=== PATIENT | male | born 1970 | race Caucasian/White ===

== ENCOUNTER 2020-10-15 08:51 | Emergency (ER) | payer MEDICARE, MEDICAID, SELFPAY ==
--- NOTE | ~2020-10-15 | CT_ITS ---
EXAMINATION: CT HEAD WITHOUT CONTRAST CLINICAL INFORMATION: Substance abuse. Altered mental status. COMPARISON: None TECHNIQUE: Contiguous axial imaging was performed from the skull base to vertex without intravenous administration of contrast. This CT examination was performed using dose optimization techniques as appropriate, variously including the following: *Automated exposure control *Adjustment of mA and/or kV according to patient size (this includes techniques or standardized protocols for targeted exams where dose is matched to indication/reason for exam; i.e. extremities or head) *Use of iterative reconstruction technique DLP: 1088 mGy-cm FINDINGS: No intra-axial or extra-axial hemorrhage. No acute territorial infarct. Ventricles and sulci appear normal. Preservation of orourke-white matter differentiation. No mass, mass effect, or midline shift. No fracture. Polypoid mucosal thickening of the left maxillary sinus. Partial opacification of the ethmoid air cells. The mastoid air cells and visualized paranasal sinuses are otherwise clear. CT/CT head/brain wo con IMPRESSION: No acute intracranial pathology.
[2020-10-15 09:21] VITALS: BP 131/71; PULSE 59; RESP 16; TEMP 36.8; O2SAT 96; BMI 45.3
--- NOTE | 2020-10-15 09:25 | PC.NURSE ---
pt calm on arrival, immediately fell asleep and has been sleeping soundly. Wakes to verbal stimuli, mumbles, speech not clear. He then returms to sleep. EMS report pt was found with a crack pipe, also had been using other unknown substances including possibly suboxone. Pt states he was partying and then fell asleep.
[2020-10-15 09:29] VITALS: BP 131/71; PULSE 59; RESP 16; TEMP 36.8; O2SAT 96
[2020-10-15 12:31] VITALS: BP 117/91; PULSE 59; RESP 14; O2SAT 95
--- NOTE | 2020-10-15 12:32 | PC.NURSE ---
pt wakes to verbal stimuli, gets agitated, raises fist but unable to answer questions. Provider aware
[2020-10-15 13:47] VITALS: BP 121/83; PULSE 61; RESP 14; O2SAT 95
--- NOTE | 2020-10-15 13:51 | ED.ALCOHOL ---
HPI - Alcohol General Chief Complaint: ETOH/Substance Use Stated Complaint: ams, drug use Time Seen by Provider: 10/15/20 09:26 Source: patient and EMS Mode of arrival: EMS History of Present Illness HPI narrative: 50-year-old male with a past medical history of substance abuse brought in by ambulance and PD for arrived ache behavior/suspected substance abuse, patient altered/combative on scene with multiple paraphernalia/illicit substances found on person. Per EMS neighbors called 911 secondary to noise. Patient reported he had been partying all night, otherwise not forthcoming with information. Did admit to using Suboxone/crack. Denied injury/fall. Sleeping/lethargic/under the influence on exam Related Data Allergies Allergy/AdvReac Type Severity Reaction Status Date / Time No Known Allergies Allergy Unverified 10/15/20 09:33 Review of Systems Review of Systems: History unobtainable/limited secondary to patient's acute AMS/substance abuse Yes all other systems are reviewed and are negative PMFSH Past Medical History Attestation statement: The following information was validated with the patient. Medical History (Updated 10/15/20 @ 15:58 by RON Santillan) Substance abuse Social History Social History Alcohol intake: unknown Smoking Status: Unknown if ever smoked Use of substances other than those prescribed or required for medical reasons: Yes Substance Use Type: Crack/Cocaine, Other and Unknown Substance Use Type Other:: suboxone Substance Use Frequency: Chronic Longstanding Last Used Substance: Just Prior to Admission Advance Directives: No Physical Exam Vital Signs: Vital Signs: Last Vital Signs Temp 98.2 F 10/15/20 09:29 Pulse 56 10/15/20 15:50 Resp 16 10/15/20 15:50 BP 117/64 10/15/20 15:50 Pulse Ox 94 10/15/20 15:50 Body Mass Index 45.3 Const: Other: Appears under the influence General: patient obtunded Orientation/consciousness: patient obtunded HENMT: Head: Yes normal to inspection and Yes atraumatic Ears: hearing grossly normal bilaterally General nose exam: Normal external nose present Face and sinus: Yes normal facial exam Eyes: General: appearance normal, both eyes and all related structures Pupils: Equal, round and reactive pupils present EOM: EOMs intact bilaterally Neck: Neck: Yes normal visual inspection and Yes no meningeal signs Resp: Effort & Inspection: normal respiratory effort Cardio: Rate: regular rate GI: Inspection: Yes normal to inspection Palpation (GI): Soft to palpation, nontender, no guarding and not rigid Skin: Rashes: no rashes Wounds: no wounds Neuro: Other: Atraumatic, arousable to painful stimuli General: tone normal, moves all extremities, no meningeal signs and patient obtunded Cranial nerves: Yes Equal, round and reactive pupils present Extrem: General: Yes normal to inspection Course Course Course Narrative: CT head/brain wo con IMPRESSION: No acute intracranial pathology. -1557--patient is still sleeping comfortably, no respiratory distress -1700--ED care transfer to [facility] pending clinical sobriety and re-evaluation, anticipated DC home MDM - Alcohol MDM Narrative Medical decision making narrative: 50-year-old male with a past medical history of substance abuse brought in by ambulance and PD for arrived ache behavior/suspected substance abuse, patient altered/combative on scene with multiple paraphernalia/illicit substances found on person. On exam VSS, NAD, appears under the influence, atraumatic, obtain ended but arousable to painful stimuli. Suspected substance abuse. Plan: Observe and reassess for clinical sobriety Medical Records Attestation: I reviewed the patient's medical records. Lab Data Attestation: I reviewed the patient's lab results. Discharge Plan Discharge Clinical Impression: Substance abuse Instructions: Polysubstance Abuse (ED) Additional Instructions: Do not do drugs or drink alcohol it can kill you follow-up with your doctor Referrals: Physician,Unknown [Primary Care Provider] - 2 days
[2020-10-15 15:50] VITALS: BP 117/64; PULSE 56; RESP 16; O2SAT 94
--- NOTE | 2020-10-15 15:51 | PC.NURSE ---
pt wakes to verbal stimuli, states I'm ok and then amador to sleep. Pt repositioned.
--- NOTE | 2020-10-15 17:22 | PC.NURSE ---
pt continues to sleep soundly, wakes to loud verbal stimuli and looks around but returns to sleep without conversing. respirations even and unlabored.
[2020-10-15 18:29] VITALS: BP 106/71; PULSE 60; RESP 14; O2SAT 96
--- NOTE | 2020-10-15 18:47 | PC.NURSE ---
pt sleeping, woke for discharge. He is angry, asking for a ride home. Pt then states he has leg cramps and cannot walk. Pt then walked to bathroom and has been using phone to call for a ride. 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
== END 2020-10-15 19:08 | disposition home or self-care (01) ==
PROVIDERS: Emergency Provider Emergency Medicine
DX: F19.10 Other psychoactive substance abuse, uncomplicated (principal); R53.83 Other fatigue; F11.20 Opioid dependence, uncomplicated
CPT/HCPCS: 70450; 99284; 99285

== ENCOUNTER 2024-07-30 09:20 | Outpatient (AMB) | payer OTHER, SELFPAY ==
--- NOTE | 2024-07-30 09:50 | A.OFFPC_ITS ---
Vital Signs 07/30/24 10:03 Height 6 ft 0.17 in Weight 318 lb 8 oz BMI 43.0 BP 112/80 Blood Pressure Location Rt brachial Position Sitting Pulse 76 Pulse Source Pulse Oximeter Pulse Oximetry (%) 96 Oxygen Delivery Method Room Air Intake Visit Reasons: Est Care Intake Note: New patient visit. Having stress test in [facility] Consultant Required: No Allergies No Known Allergies Allergy (Verified 07/30/24 09:55) Tobacco use date assessed: 07/30/24 Dental Screening Dental Screen Date: 07/30/24 Did you have a dental visit in the last 12 months?: No Did you have a dental problem in the last 6 months where you did not have access to dental care?: No Was dental information given to patient?: Patient declined HPI HPI Comments History of Present Illness Details 54 year old male with a past medical his tory of chronic back pain-DDD, hypertension, depression, ADHD, presenting to reestablish care MSK: Following with Dr Santos-MARIBEL of cervical, lumbar and thoracic spine. Has had injections and is being scheduled for an injection soon. Continue on pregabalin 300mg twice daily -Seeing [facility] for left knee pain. Waiting for gel injection. BH: Follows with [email or web address] for suboxone and [facility] in [place]. On abilify, adderall, prazosin, suboxone, celexa CV: On lipitor. Saw GI in 2022 to discuss colonoscopy ROS CONSTITUTIONAL: Denies weight loss, fever and chills. HEENT: Denies changes in vision and hearing. RESPIRATORY: Denies SOB and cough. CV: Denies palpitations and CP GI: Denies abdominal pain, nausea, vomiting and diarrhea. : Denies dysuria and urinary frequency. MSK: Denies new myalgia and joint pain. SKIN: Denies rash and pruritus. NEUROLOGICAL: Denies headache PSYCHIATRIC: Denies recent changes in mood. PHYSICAL EXAM: GENERAL: Alert and oriented x 3. NAD EYES: EOMI. Anicteric. HENT: Moist mucous membranes. No scleral icterus. No cervical lymphadenopathy. LUNGS: Clear to auscultation bilaterally. CARDIOVASCULAR: Regular rate and rhythm. No murmur. No JVD. ABDOMEN: Soft, non-tender +bs EXTREMITIES: No edema. Non-tender. SKIN: No rashes or lesions. Warm. NEUROLOGIC: No focal neurological deficits. CN II-XII grossly intact PSYCHIATRIC: Cooperative. Appropriate mood and affect [facility] Medical History Substance abuse Surgical History H/O shoulder surgery Family History Mother Alcoholism Depression Maternal Grandmother Alcoholism Maternal Grandfather Alcoholism Other FH: mental illness Substance abuse Social History Housing: Apartment (2 family house) Alcohol intake: former Comment: quit 2017 Patient Tobacco Use Status: Current everyday Tobacco user Tobacco use type: Cigarette Cigarette Packs Per Day: 0 Cigarettes Per Day: 20 Years Smoked: 36 e-Cigarette/Vaping Use: Never Used Second Hand Smoke Exposure: No Substance Use Type: Crack/Cocaine, Former Substance User, Other and Unknown service: No Current occupational status: employed and unemployed Cognitive needs: No Hearing needs: No Vision needs: Yes (reading glasses) Questionnaire PHQ-9 Over the last 2 weeks, how often have you been bothered by any of the following problems? 1. Little interest or pleasure in doing things: several days 2. Feeling down, depressed, or hopeless: several days 3. Trouble falling or staying asleep, or sleeping too much: not at all 4. Feeling tired or having little energy: not at all 5. Poor appetite or overeating: not at all 6. Feeling bad about yourself - or that you are a failure or have let yourself or your family down: not at all 7. Trouble concentrating on things, such as reading the newspaper or watching television: not at all 8. Moving or speaking so slowly that other people could have noticed. Or the opposite - being so fidgety or restless that you have been moving around a lot more than usual: several days 9. Thoughts that you would be better off or of hurting yourself in some way: not at all Total score: 3 Depression Screening Interpretation: Positive Depression Screening Done: Yes 55120 - PHQ-9 Billing: Yes Source: Developed by Drs. Dannie Almaguer, Dari Bolanos, Simone Cochran and colleagues, with an educational sulaiman from [employer]. Thrive Questionnaire Date Thrive assessed: 07/27/24 I am a: Patient What is your living situation today?: I have a steady place to live Within the past 12 months, did the food you bought not last and you didn't have the money to get more?: Sometimes True Within the past 12 months, did you worry whether your food would run out before you got money to buy more?: Sometimes True Do you have trouble paying for medicines?: I choose not to answer this question Do you have trouble getting transportation to medical appointments?: I choose not to answer this question Do you have trouble paying your heating and electricity bill?: I choose not to answer this question Do you have trouble taking care of your child, family member or friend?: I choose not to answer this question Do you have trouble with day-to-day activities such as bathing, preparing meals, shopping, managing finances, etc.?: I choose not to answer this question Are you currently unemployed and looking for a job?: I choose not to answer this question Are you interested in more education?: I choose not to answer this question Please select the resources that you would like help with: None Currently or been in a relationship where the following occur: I choose not to answer THRIVE Score: 2 AUDIT C Alcohol Use Questionnaire (AUDIT-C) 1. How often do you have a drink containing alcohol?: Never 3. How often do you have six or more drinks on one occasion?: Never Total Score: 0 OBED-7 AMB Questionnaire OBED-7 Date OBED - 7 assessed: 07/30/24 Feeling nervous, anxious, or on edge: 1 = Several days Not being able to stop or control worryin = Several days Worrying too much about different things: 1 = Several days Trouble relaxin = Not at all Being so restless that it is hard to sit still: 0 = Not at all Becoming easily annoyed or irritable: 0 = Not at all Feeling afraid as if something awful might happen: 0 = Not at all Total OBED-7 score (0-4 normal; 5-9 mild; 10-14 moderate; 15-21 severe): 3 Source: Developed by Dari Hutchins Kurt Kroenke and colleagues, with an educational sulaiman from [employer]. OBED-7 Assessment Billing OBED-7 Assessment Tool: OBED-7 Assessment 23406 Physical exam (Primary Care) Vital Signs: Last Vital Signs Pulse 76 07/30/24 10:03 BP 112/80 07/30/24 10:03 Pulse Ox 96 07/30/24 10:03 Oxygen Delivery Method Room Air 07/30/24 10:03 BMI result Body Mass Index 43.0 Tobacco/Smoking Status: Tobacco use Status Tobacco use date assessed 07/30/24 07/30/24 10:11 Patient Tobacco Use Status Current everyday Tobacco 07/30/24 10:11 Tobacco use type Cigarette 07/30/24 10:11 e-Cigarette/Vaping Use Never Used 07/30/24 10:11 PHQ-9: PHQ-9 Score PHQ-9: Total score 3 08/09/24 07:09 Depression Screening Interpretation: Positive Thrive Assessment: Date of Thrive Assessment Date Thrive assessed 07/27/24 07/30/24 09:52 Currently or been in a relationship where the following occur: I choose not to answer Coding Level of Care Code Est Pt Level 4 (64771) Diagnoses Primary hypertension I10 Hypertension type: primary hypertension H/O degenerative disc disease Z87.39 Recurrent major depressive disorder, in partial remission F33.41 Active/Remission status: in partial remission Depression Type: major depressive disorder Major depression recurrence: recurrent Anxiety F41.9 Additional Codes OBED-7 Assessment Billing - OBED-7 Assessment Tool: OBED-7 Assessment 81570 ([id number]) PHQ-9 - 22911 - PHQ-9 Billing: Yes ([id number]) Assessment & Plan Assessment & Plan (1) Hypertension: Code(s): I10 - Essential (primary) hypertension Category: Medical Qualifiers: Hypertension type: primary hypertension Qualified Code(s): I10 - Essential (primary) hypertension Plan: controlled on current medication. Efforts toward weight loss. GLP ordered (2) H/O degenerative disc disease: Code(s): Z87.39 - Personal history of other diseases of the musculoskeletal system and connective tissue Category: Medical Plan: continue follow up physiatry (3) Depression: Code(s): F32.A - Depression, unspecified Category: Medical Qualifiers: Active/Remission status: in partial remission Depression Type: major depressive disorder Major depression recurrence: recurrent Qualified Code(s): F33.41 - Major depressive disorder, recurrent, in partial remission Plan: stable on current medicaitons (4) Anxiety: Code(s): F41.9 - Anxiety disorder, unspecified Category: Medical Plan: stable on current medications Orders: Referrals Cologuard Test Z12.11 - Encounter for screening for malignant neoplasm of colon, Z12.12 - Encounter for screening for malignant neoplasm of rectum Medications: New Zepbound (tirzepatide (weight loss)) for 4 weeks 2.5 mg (0.5 mL) subcut QWEEK 2 mL 0RF NS E66.9 - Obesity, unspecified, I10 - Essential (primary) hypertension, Z87.39 - Personal history of other diseases of the musculoskeletal system and connective tissue
[2024-07-30 10:03] VITALS: BP 112/80; PULSE 76; O2SAT 96; BMI 43.0
== END 2024-07-30 10:28 | disposition home or self-care (01) ==
PROVIDERS: PCP Internal Medicine; Visit Provider Internal Medicine
DX: I10 Essential (primary) hypertension (principal); Z87.39 Personal history of other diseases of the musculoskeletal system and connective tissue; F33.41 Major depressive disorder, recurrent, in partial remission; F41.9 Anxiety disorder, unspecified

== ENCOUNTER → 2024-07-30 09:20 | Outpatient (BNVA) | payer OTHER, SELFPAY | PROVIDERS: PCP Internal Medicine; Visit Provider Internal Medicine | DX: I10 Essential (primary) hypertension (principal); F33.41 Major depressive disorder, recurrent, in partial remission; F41.9 Anxiety disorder, unspecified; Z87.39 Personal history of other diseases of the musculoskeletal system and connective tissue; Z79.899 Other long term (current) drug therapy | CPT/HCPCS: 96127; 99212 ==

== ENCOUNTER 2024-08-31 16:21 | Outpatient (AMB) | payer OTHER, SELFPAY ==
--- NOTE | 2024-08-31 15:35 | A.OFFPC_ITS ---
Intake Visit Reasons: phone weight Allergies No Known Allergies Allergy (Verified 07/30/24 09:55) Medication List - Last Reconciled 09/01/24 by Meena Chen MD aripiprazole 10 mg PO BEDTIME atorvastatin 40 mg PO DAILY chlorthalidone 25 mg PO DAILY 90 days cholecalciferol (vitamin D3) 50 mcg PO DAILY dextroamphetamine-amphetamine 20 mg 20 mg PO BID 60 days ibuprofen 800 mg PO 3XD PRN pregabalin 300 mg PO BID venlafaxine ER 75 mg PO DAILY Wegovy (semaglutide (weight loss)) 0.25 mg (0.5 mL) subcut QWEEK NS Zepbound (tirzepatide (weight loss)) 2.5 mg (0.5 mL) subcut QWEEK NS Tobacco use date assessed: 07/30/24 Dental Screening Dental Screen Date: 07/30/24 HPI HPI Comments History of Present Illness Details 54 year old male with a past medical his tory of chronic back pain-DDD, hypertension, depression, ADHD, presenting for follow up Seen one month ago at which time he was initiated on zepbound-insurance wouldnt cover but would cover wegovy which was ordered. Says he never got notice from pharmacy so has not stated the medication. MSK: Following with Dr Santos-DDD of cervical, lumbar and thoracic spine. Has had injections and is being scheduled for an injection soon. Continue on pregabalin 300mg twice daily -Seeing [facility] for left knee pain. Has got ten 2/3 gel injection. BH: Follows with [facility] for suboxone and [facility] in [place]. On abilify, adderall CV: On lipitor. Saw GI in 2022 to discuss colonoscopy ROS CONSTITUTIONAL: Denies weight loss, fever and chills. HEENT: Denies changes in vision and hearing. RESPIRATORY: Denies SOB and cough. CV: Denies palpitations and CP GI: Denies abdominal pain, nausea, vomiting and diarrhea. : Denies dysuria and urinary frequency. MSK: Denies new myalgia and joint pain. SKIN: Denies rash and pruritus. NEUROLOGICAL: Denies headache PSYCHIATRIC: Denies recent changes in mood. PHYSICAL EXAM: Telehealth [facility] Medical History Substance abuse Surgical History H/O shoulder surgery Family History Mother Alcoholism Depression Maternal Grandmother Alcoholism Maternal Grandfather Alcoholism Other FH: mental illness Substance abuse Social History Housing: Apartment (2 family house) Alcohol intake: former Comment: quit 2017 Patient Tobacco Use Status: Current everyday Tobacco user Tobacco use type: Cigarette Cigarette Packs Per Day: 0 Cigarettes Per Day: 20 Years Smoked: 36 Packs Per Year: 0 Packs per year/per ci.00 e-Cigarette/Vaping Use: Never Used Second Hand Smoke Exposure: No Substance Use Type: Crack/Cocaine, Former Substance User, Other and Unknown service: No Current occupational status: employed and unemployed Cognitive needs: No Hearing needs: No Vision needs: Yes (reading glasses) Questionnaire Thrive Questionnaire Date Thrive assessed: 07/27/24 I am a: Patient What is your living situation today?: I have a steady place to live Within the past 12 months, did the food you bought not last and you didn't have the money to get more?: Sometimes True Within the past 12 months, did you worry whether your food would run out before you got money to buy more?: Sometimes True Do you have trouble paying for medicines?: I choose not to answer this question Do you have trouble getting transportation to medical appointments?: I choose not to answer this question Do you have trouble paying your heating and electricity bill?: I choose not to answer this question Do you have trouble taking care of your child, family member or friend?: I choose not to answer this question Do you have trouble with day-to-day activities such as bathing, preparing meals, shopping, managing finances, etc.?: I choose not to answer this question Are you currently unemployed and looking for a job?: I choose not to answer this question Are you interested in more education?: I choose not to answer this question Please select the resources that you would like help with: None Currently or been in a relationship where the following occur: I choose not to answer THRIVE Score: 2 OBED-7 AMB Questionnaire OBED-7 Date OBED - 7 assessed: 07/30/24 Source: Developed by Drs. Dannie Almaguer, Dari Bolanos, Simone Cochran and colleagues, with an educational sulaiman from [employer]. Physical exam (Primary Care) Tobacco/Smoking Status: Tobacco use Status Tobacco use date assessed 07/30/24 08/31/24 15:35 Patient Tobacco Use Status Current everyday Tobacco 08/31/24 15:35 Tobacco use type Cigarette 08/31/24 15:35 e-Cigarette/Vaping Use Never Used 08/31/24 15:35 Thrive Assessment: Date of Thrive Assessment Date Thrive assessed 07/27/24 08/31/24 15:35 Currently or been in a relationship where the following occur: I choose not to answer Telehealth Telehealth Telehealth Platform: [facility] Location of provider rendering services: practice address Location of patient: address on file Patient Identification confirmed using: Name, : Yes Telehealth method: voice only Patient verbally consented to treatment: Yes Patient verbally consented to billing insurance company: Yes Patient informed of any privacy concerns related to visit: Yes Minutes spent on Phone/Video with Pt.: 25 Coding Level of Care Code Tele Est Pt Level 4 (51150) Diagnoses Class 3 severe obesity with serious comorbidity and body mass index (BMI) of 40.0 to 44.9 in adult, unspecified obesity type E66.813; E66.01; Z68.41 Body mass index: BMI 40.0-44.9 Obesity classification: adult class 3 (BMI >= 40) Obesity type: unspecified obesity type Serious obesity comorbidity presence: with serious comorbidity Primary hypertension I10 Hypertension type: primary hypertension Assessment & Plan Assessment & Plan (1) Obesity: Code(s): E66.9 - Obesity, unspecified Category: Medical Qualifiers: Body mass index: BMI 40.0-44.9 Obesity classification: adult class 3 (BMI >= 40) Obesity type: unspecified obesity type Serious obesity comorbidity presence: with serious comorbidity Qualified Code(s): E66.813 - Obesity, class 3; E66.01 - Morbid (severe) obesity due to excess calories; Z68.41 - Body mass index [BMI] 40.0-44.9, adult Plan: wegocynthia resent. (2) Hypertension: Code(s): I10 - Essential (primary) hypertension Category: Medical Qualifiers: Hypertension type: primary hypertension Qualified Code(s): I10 - Essential (primary) hypertension Plan: controlled on medications. goals towards signficant weight loss. salt reduction Medications: New aripiprazole 10 mg PO BEDTIME 90 tabs 3RF cholecalciferol (vitamin D3) 50 mcg PO DAILY 90 caps 3RF Changed From ibuprofen PO 3XD To ibuprofen 800 mg PO 3XD PRN 270 tabs 3RF fever or pain From atorvastatin PO DAILY To atorvastatin 40 mg PO DAILY 90 tabs 3RF From venlafaxine ER PO To venlafaxine ER 75 mg PO DAILY 90 caps 3RF From pregabalin PO BID To pregabalin 300 mg PO BID 180 caps 3RF From dextroamphetamine-amphetamine 20 mg PO BID 0RF F98.8 - Other specified behavioral and emotional disorders with onset usually occurring in childhood and adolescence To dextroamphetamine-amphetamine 20 mg 20 mg PO BID 60 days 120 tabs 0RF F98.8 - Other specified behavioral and emotional disorders with onset usually occurring in childhood and adolescence From chlorthalidone PO DAILY To chlorthalidone 25 mg PO DAILY 90 days 90 tabs 3RF Refilled venlafaxine ER 75 mg PO DAILY 90 caps 3RF ibuprofen 800 mg PO 3XD PRN 270 tabs 3RF fever or pain chlorthalidone 25 mg PO DAILY 90 tabs 3RF 90 days Wegovy (semaglutide (weight loss)) administer weeks 1 through 4 of therapy 0.25 mg (0.5 mL) subcut QWEEK 2 mL 1RF NS E66.9 - Obesity, unspecified, I10 - Essential (primary) hypertension Wegovy (semaglutide (weight loss)) administer weeks 1 through 4 of therapy 0.25 mg (0.5 mL) subcut QWEEK 2 mL 1RF NS E66.9 - Obesity, unspecified, I10 - Essential (primary) hypertension pregabalin 300 mg PO BID 180 caps 3RF dextroamphetamine-amphetamine 20 mg 20 mg PO BID 120 tabs 0RF 60 days F98.8 - Other specified behavioral and emotional disorders with onset usually occurring in childhood and adolescence cholecalciferol (vitamin D3) 50 mcg PO DAILY 90 caps 3RF atorvastatin 40 mg PO DAILY 90 tabs 3RF aripiprazole 10 mg PO BEDTIME 90 tabs 3RF
--- OUTSIDE RECORDS SUMMARY | 2024-08-31 19:45 | XMS_ITS | Clinical Summary ---
Author Organization [employer] [facility] Address [address] [place] [address] Care Team Providers Care Director Of Campus Recreation Name Role Phone Meena Chen MD Primary Care Provider [phone] Surgical History Surgery Date Site/Laterality Comments SHOULDER SURGERY 2001 Right PROCEDURE: HISTORICAL SHOULDER SURGERY Medical History Medical History Date Comments Cervicalgia 03/24/2017 DX:Cervicalgia High risk medication use 12/12/2016 DX:High risk medication use Hyperlipidemia with target L DL less than 130 12/23/2013 DX:Hyperlipidemia with targe t LDL less than 130; COMMENT: IMO update Lumbosacral spondylosis with radiculopathy 05/30/2015 DX:Lumbosacral spondylosis w ith radiculopathy; COMMENT: Sees PSSP, MRI: DDD, sppondylisthesis, foraminal narrowing , L3-4 nerve root crowding Morbid obesity with BMI of 4 5.0-49.9, adult (CMS/HCC) 03/24/2017 DX:Morbid obesity with BMI o f 45.0-49.9, adult ([facility]) Sacroiliitis (CMS/HCC) 03/24/2017 DX:Sacroi liitis ([facility]) Thoracic spondylosis without myelopathy DX:Thoracic spondylosis without myelopathy; COMMENT: PSSP Family History Medical History Relation Name Comments Other: fire Father Stroke Maternal Grandmother Heart attack Mother Relation Name Status Comments Father Maternal Grandmother Mother Social History Tobacco Use Types Packs/Day Years Used Date Smoking Tobacco: Every Day Cigarettes Last attempted to quit: 06/18/2012 Smokeless Tobacco: Never Alcohol Use Standard Drinks/Week Comments No 0 (1 standard drink = 0.6 oz pur e alcohol) Sex and Gender Information Value Date Recorded Sex Assigned at Not on file Legal Sex Male 7:48 PM EST Gender Identity Not on file Sexual Orientation Not on file Obstetrics History Plan of Treatment Health Maintenance Due Date Last Done Comments Hepatitis B Vaccines (1 of 3 - 19+ 3-dose series) 1989 Pneumococcal Vaccine: 50+ Years (1 of 2 - PCV) 1989 Pneumococcal Vaccine: Pediatrics (0 to 5 Years) and At-Risk Patients (6 to 64 Years) (1 of 2 - PCV) 1989 Zoster Vaccines (1 of 2) 2020 Cholesterol Screening (Lipid Panel) 06/08/2022 Colorectal Cancer Screening: Colonoscopy 06/08/2022 Depression Screening 06/08/2022 HIV Screening 06/08/2022 Hepatitis C Screening 06/08/2022 Social Influencers of Health Screening 06/08/2022 Hypertension/CHF/CAD Annual BMP Blood Test 06/22/2022 DTaP,Tdap,and Td Vaccines (2 - Td or Tdap) 12/04/2022 12/04/2012 COVID-19 Vaccine (4 - 2023-2 5 season) 2024 06/28/2021, 11/26/2020, 11/05/2020 Influenza Vaccine (#1) 2024 05/10/2020 HIB Vaccines Aged Out No longer eligi ble based on patient's age to complete this topic HPV Vaccines Aged Out No longer eligi ble based on patient's age to complete this topic Hepatitis A Vaccines Aged Out No long er eligible based on patient's age to complete this topic IPV Vaccines Aged Out No longer eligi ble based on patient's age to complete this topic MMR Vaccines Aged Out No longer eligi ble based on patient's age to complete this topic Meningococcal ACWY Vaccine Aged Out N o longer eligible based on patient's age to complete this topic Meningococcal B Vacine Aged Out No lo nger eligible based on patient's age to complete this topic RSV Immunization Patients Under 20 months Aged Out No longer eligible b ased on patient's age to complete this topic Varicella Vaccines Aged Out No longer eligible based on patient's age to complete this topic Care Teams Director Of Campus Recreation Relationship Specialty Start Date End Date Meena Chen MD PCP - General Internal Medicine 04/28/15
== END 2024-08-31 17:05 | disposition home or self-care (01) ==
LOC: HO.HMCFM 16:21
PROVIDERS: PCP Internal Medicine; Visit Provider Internal Medicine
DX: I10 Essential (primary) hypertension (principal); E66.01 Morbid (severe) obesity due to excess calories; Z68.41 Body mass index [BMI] 40.0-44.9, adult

== ENCOUNTER → 2024-08-31 16:21 | Outpatient (BNVA) | payer OTHER, SELFPAY | PROVIDERS: PCP Internal Medicine; Visit Provider Internal Medicine | DX: E66.9 Obesity, unspecified (principal); I10 Essential (primary) hypertension; F98.8 Other specified behavioral and emotional disorders with onset usually occurring in childhood and adolescence ==

== ENCOUNTER 2025-01-11 15:23 | Outpatient (AMB) | payer OTHER, SELFPAY ==
--- OUTSIDE RECORDS SUMMARY | 2025-01-11 08:50 | XMS_ITS | Encounter Summary ---
Author Organization [facility] Address [address] [place] [address] Care Team Providers Care Sleeve Baster Name Role Phone Meena Chen MD Primary Care Provider [phone] Reason for Referral * Pain Management (Routine) - Authorized Specialty Diagnoses / Procedures Referred By Contac t Referred To Contact Pain Medicine Diagnoses Radiculopathy, lumbar region Procedures Injection epidural lumbar transforaminal right Romulo Santos DO [address] [facility] [address] [place] [address] Phone: tel: fax: Referral ID Status Reason Start Date Expiration Date V isits Requested Visits Authorized [id number] Authorized 12/14/2024 12/14/2025 1 1 Reason for Visit * Pain Management (Routine) - Authorized Specialty Diagnoses / Procedures Referred By Nickac t Referred To Contact Pain Medicine Diagnoses Radiculopathy, lumbar region Procedures Injection epidural lumbar transforaminal right Romulo Santos DO [address] [facility] [address] [place] [address] Phone: tel: fax: Referral ID Status Reason Start Date Expiration Date V isits Requested Visits Authorized [id number] Authorized 12/14/2024 12/14/2025 1 1 Encounter Details Date Type Department Care Team (Latest Contact Info) Description 01/11/2025 8:50 AM EDT Hospital Encounter [facility] [address] [place] [id number] Romulo Santos DO [address] [employer] [address] [place] [address] Dai Shanks CRNA [address] [place] [address] Brooks Cardona MD [address] [place] [address] Radiculopathy, lumbar region Social History Tobacco Use Types Packs/Day Years [...] on file Sexual Orientation Not on file documented as of this encounter Last Filed Vital Signs Vital Sign Reading Time Taken Comments Blood Pressure 117/70 01/11/2025 11:42 AM EDT Pulse 65 01/11/2025 11:42 AM EDT Temperature 36.4 C (97.6 F) 01/11/2025 11:21 AM EDT Respiratory Rate 18 01/11/2025 11:42 AM EDT Oxygen Saturation 97% 01/11/2025 11:42 AM EDT Inhaled Oxygen Concentration - - Weight 145 kg (320 lb) 01/11/2025 9:05 AM EDT Height 180.3 cm (5' 11 ) 01/11/2025 9:05 AM EDT Body Mass Index 44.63 01/11/2025 9:05 AM EDT documented in this encounter H&P Notes * Romulo Santos DO - 01/11/2025 10:00 AM EDT Please refer to our office notes for complete details of history of present illness and physical examination. They were reviewed. No changes are reported. documented in this encounter Procedure Notes * Keila Bryant RN - 01/11/2025 10:00 AM EDT Dc instructions reviewed w/pt * Romulo Santos DO - 01/11/2025 10:00 AM EDT Procedure performed: Right L1 TFESI Pre-Op diagnosis: Lumbar radiculitis Postop diagnosis: Same Physician: Romulo Santos DO Anesthesia: MAC Procedure in detail: After informed consent was obtained patient was brought in the procedure room and placed in the prone position on the procedure table. Skin over lumbar sacral area was prepped and draped in usual sterile manner. Right L1 pedicle was visualized utilizing fluoroscopy. 5 inch 22-gauge spinal needle was introduced percutaneously and advanced toward the pedicle. Needle placement was verified utilizingAP and lateral fluoroscopic images. Total volume of 3 cc of Isovue contrast solution was utilized to establish appropriate needle positioning. Excellent flow through the neural foramen and epidural spread was visualized without evidence of vascular uptake. Total volume of 6 cc containing 3 cc of 1% lidocaine, 40 mg of triamcinolone and normal saline solution were injected after negative aspiration for blood and cerebrospinal fluid. Patient tolerated procedure very well without complications. Patient was transported to recovery room and after observation discharged home in stable condition accompanied by family. Postprocedure instructions were provided. Radiation exposure was documented in the chart. documented in this encounter Plan of Treatment Scheduled Orders Name Type Priority Associated Diagnoses Orde r Schedule Injection epidural lumbar transforaminal right Procedures Routine Radiculopathy, lumbar region Once for 1 Occurrences starting 01/11/2025 until 01/11/2025 documented as of this encounter Visit Diagnoses Diagnosis Radiculopathy, lumbar region Thoracic or lumbosacral neuritis or radiculitis, unspecified documented in this encounter Administered Medications Inactive Administered Medications - up to 3 most recent administrations Medication Order MAR Action Action Date Dose Rate Site iopamidoL (ISOVUE-300) 300 mg iodine /mL (61 %) solution As needed, Starting on Fri01/11/25 at 1111, Intraprocedure Given 01/11/2025 11:11 AM EDT 3 mL lidocaine (XYLOCAINE) 1 % injection As needed, Starting on Fri01/11/25 at 1111, Intraprocedure Given 01/11/2025 11:11 AM EDT 5 mL triamcinolone acetonide (KENALOG-40) 40 mg/mL injection As needed, Starting on Fri01/11/25 at 1111, Intraprocedure Given 01/11/2025 11:11 AM EDT 40 mg documented in this encounter Orders Discharge Count Last Ordered Date First Orde red Date DISCHARGE PATIENT 1 01/11/2025 documented in this encounter Care Teams Sleeve Baster Relationship Specialty Start Date End Date Meena Chen MD [address] [place] [address] PCP - General Internal Medicine 04/28/15 documented as of this encounter
--- NOTE | 2025-01-11 15:33 | A.OFFPC_ITS ---
Vital Signs 01/11/25 15:40 Height 6 ft 0.17 in Weight 331 lb 2 oz BMI 44.7 BP 138/67 Blood Pressure Location Lt brachial Position Sitting Pulse 73 Pulse Source Pulse Oximeter Temp 97.9 F Temp Source Oral Pulse Oximetry (%) 96 Oxygen Delivery Method Room Air Intake Visit Reasons: f/u Intake Note: Follow up Entry Level Software Engineer Required: No Allergies No Known Allergies Allergy (Verified 01/11/25 15:36) Tobacco use date assessed: 01/11/25 Dental Screening Dental Screen Date: 07/30/24 HPI HPI Comments History of Present Illness Details 54 year old male with a past medical his tory of chronic back pain-DDD, hypertension, depression, ADHD, opioid misuse on suboxone presenting for follow up Obesity: tries to limit caloric intake. unable to exercise due to OA, DDD, chronic pain. zepbound denied. Insurance previously approved wegovy but was unable to obtain MSK: Following with Dr Santos-MARIBEL of cervical, lumbar and thoracic spine. Has had injections and is being scheduled for an injection soon. Continue on pregabalin 300mg twice daily -Seeing [facility] for left knee pain. Has got ten 2/3 gel injection. BH: Follows with [facility] for suboxone and [facility] [place]. On abilify, adderall, venlafaxine 75 daily. CV: On lipitor, chlorthalidone 25mg daily. Notes increased LE edema. Lasix previously worked better for him. Has intermittent chest pain. Was previously supposed to have nuclear stress but lost to follow up Saw GI in 2022 to discuss colonoscopy. cologuard ordered ROS see HPI PHYSICAL EXAM: GENERAL: Alert and oriented x 3. NAD EYES: EOMI. Anicteric. HENT: Moist mucous membranes. No scleral icterus. No cervical lymphadenopathy. LUNGS: Clear to auscultation bilaterally. CARDIOVASCULAR: Regular rate and rhythm. No murmur. No JVD. ABDOMEN: Soft, non-tender +bs EXTREMITIES: No edema. Non-tender. SKIN: No rashes or lesions. Warm. NEUROLOGIC: No focal neurological deficits. CN II-XII grossly intact PSYCHIATRIC: Cooperative. Appropriate mood and affect [facility] Medical History Substance abuse Surgical History History of epidural steroid injection into cervical spine H/O shoulder surgery Family History Mother Alcoholism Depression Maternal Grandmother Alcoholism Maternal Grandfather Alcoholism Other FH: mental illness Substance abuse Social History Housing: Apartment (2 family house) Alcohol intake: former Comment: quit 2017 Patient Tobacco Use Status: Current everyday Tobacco user Tobacco use type: Cigarette Cigarette Packs Per Day: 0 Cigarettes Per Day: 20 Years Smoked: 36 e-Cigarette/Vaping Use: Never Used Second Hand Smoke Exposure: No Substance Use Type: Crack/Cocaine, Former Substance User, Other and Unknown service: No Current occupational status: employed and unemployed Cognitive needs: No Hearing needs: No Vision needs: Yes (reading glasses) Questionnaire Thrive Questionnaire Date Thrive assessed: 07/27/24 I am a: Patient What is your living situation today?: I have a steady place to live Within the past 12 months, did the food you bought not last and you didn't have the money to get more?: Sometimes True Within the past 12 months, did you worry whether your food would run out before you got money to buy more?: Sometimes True Do you have trouble paying for medicines?: I choose not to answer this question Do you have trouble getting transportation to medical appointments?: I choose not to answer this question Do you have trouble paying your heating and electricity bill?: I choose not to answer this question Do you have trouble taking care of your child, family member or friend?: I choose not to answer this question Do you have trouble with day-to-day activities such as bathing, preparing meals, shopping, managing finances, etc.?: I choose not to answer this question Are you currently unemployed and looking for a job?: I choose not to answer this question Are you interested in more education?: I choose not to answer this question Please select the resources that you would like help with: None Currently or been in a relationship where the following occur: I choose not to answer THRIVE Score: 2 OBED-7 AMB Questionnaire OBED-7 Date BOED - 7 assessed: 07/30/24 Source: Developed by José Miguel Hutchinset B.W. Luis Miguel, Simone Cochran and colleagues, with an educational sulaiman from [employer]. Physical exam (Primary Care) Vital Signs: Last Vital Signs Temp 97.9 F 01/11/25 15:40 Pulse 73 01/11/25 15:40 BP 138/67 01/11/25 15:40 Pulse Ox 96 01/11/25 15:40 Oxygen Delivery Method Room Air 01/11/25 15:40 BMI result Body Mass Index 44.7 Tobacco/Smoking Status: Tobacco use Status Tobacco use date assessed 01/11/25 01/11/25 15:44 Patient Tobacco Use Status Current everyday Tobacco 01/11/25 15:35 Tobacco use type Cigarette 01/11/25 15:35 e-Cigarette/Vaping Use Never Used 01/11/25 15:35 Thrive Assessment: Date of Thrive Assessment Date Thrive assessed 07/27/24 01/11/25 15:35 Currently or been in a relationship where the following occur: I choose not to answer Coding Level of Care Code Est Pt Level 4 (74791) Complex EM visit Add On G2211 Diagnoses Primary hypertension I10 Hypertension type: primary hypertension H/O degenerative disc disease Z87.39 Primary osteoarthritis involving multiple joints M15.0 Osteoarthritis location: multiple joints Osteoarthritis type: primary Chest pain, unspecified type R07.9 Chest pain type: unspecified Assessment & Plan Assessment & Plan (1) Hypertension: Code(s): I10 - Essential (primary) hypertension Category: Medical Qualifiers: Hypertension type: primary hypertension Qualified Code(s): I10 - Essential (primary) hypertension (2) H/O degenerative disc disease: Code(s): Z87.39 - Personal history of other diseases of the musculoskeletal system and connective tissue Category: Medical (3) Osteoarthritis: Code(s): M19.90 - Unspecified osteoarthritis, unspecified site Category: Medical Qualifiers: Osteoarthritis location: multiple joints Osteoarthritis type: primary Qualified Code(s): M15.0 - Primary generalized (osteo)arthritis (4) Chest pain: Code(s): R07.9 - Chest pain, unspecified Category: Medical Qualifiers: Chest pain type: unspecified Qualified Code(s): R07.9 - Chest pain, unspecified Plan 54 year old follow up Chronic pain-would be good journavx candidate. Might have to go off suboxone if approved. Add baclofen. continue physiatry follow up. Obesity-GLP ordered. multple comorbidities Chest pain-nuclear stress ordered Orders: Orders Complete Blood Count Auto Diff 01/11/25 E66.01 - Morbid (severe) obesity due to excess calories, E66.813 - Obesity, class 3, E78.5 - Hyperlipidemia, unspecified, F33.41 - Major depressive disorder, recurrent, in partial remission, F41.9 - Anxiety disorder, unspecified, I10 - Essential (primary) hypertension, Z13.0 - Encounter for screening for diseases of the blood and blood-forming organs and certain disorders involving the immune mechanism, Z68.41 - Body mass index [BMI] 40.0-44.9, adult Lipid Panel 01/11/25 E66.01 - Morbid (severe) obesity due to excess calories, E66.813 - Obesity, class 3, E78.5 - Hyperlipidemia, unspecified, F33.41 - Major depressive disorder, recurrent, in partial remission, F41.9 - Anxiety disorder, unspecified, I10 - Essential (primary) hypertension, Z13.0 - Encounter for screening for diseases of the blood and blood-forming organs and certain disorders involving the immune mechanism, Z68.41 - Body mass index [BMI] 40.0- 44.9, adult NM cardiolite stress test 01/11/25 R94.31 - Abnormal electrocardiogram [ECG] [EKG] Comprehensive Met. Panel 01/11/25 E66.01 - Morbid (severe) obesity due to excess calories, E66.813 - Obesity, class 3, E78.5 - Hyperlipidemia, unspecified, F33.41 - Major depressive disorder, recurrent, in partial remission, F41.9 - Anxiety disorder, unspecified, I10 - Essential (primary) hypertension, Z13.0 - Encounter for screening for diseases of the blood and blood-forming organs and certain disorders involving the immune mechanism, Z68.41 - Body mass index [BMI] 40.0-44.9, adult Hemoglobin A1c 01/11/25 E66.01 - Morbid (severe) obesity due to excess ca lories, E66.813 - Obesity, class 3, E78.5 - Hyperlipidemia, unspecified, F33.41 - Major depressive disorder, recurrent, in partial remission, F41.9 - Anxiety disorder, unspecified, I10 - Essential (primary) hypertension, Z13.0 - Encounter for screening for diseases of the blood and blood-forming organs and certain disorders involving the immune mechanism, Z68.41 - Body mass index [BMI] 40.0- 44.9, adult TSH reflex Free T4 01/11/25 E66.01 - Morbid (severe) obesity due to excess calories, E66.813 - Obesity, class 3, E78.5 - Hyperlipidemia, unspecified, F33.41 - Major depressive disorder, recurrent, in partial remission, F41.9 - Anxiety disorder, unspecified, I10 - Essential (primary) hypertension, Z13.0 - Encounter for screening for diseases of the blood and blood-forming organs and certain disorders involving the immune mechanism, Z68.41 - Body mass index [BMI] 40.0-44.9, adult CA stress test 01/11/25 R94.31 - Abnormal electrocardiogram [ECG] [EKG] Medications: New suzetrigine (Journavx) 50 mg PO BID 180 tabs 3RF baclofen 20 mg PO TID 270 tabs 3RF furosemide 40 mg PO DAILY 90 tabs 3RF Discontinued chlorthalidone Discontinued Reason: Doctor's Order 25 mg PO DAILY 90 days 90 tabs 3RF
[2025-01-11 15:40] VITALS: BP 138/67; PULSE 73; TEMP 36.6; O2SAT 96; BMI 44.7
== END 2025-01-11 16:41 | disposition home or self-care (01) ==
LOC: HO.HMCFM 15:24
PROVIDERS: PCP Internal Medicine; Visit Provider Internal Medicine
DX: I10 Essential (primary) hypertension (principal); Z87.39 Personal history of other diseases of the musculoskeletal system and connective tissue; M15.0 Primary generalized (osteo)arthritis; R07.9 Chest pain, unspecified

== ENCOUNTER → 2025-01-11 15:23 | Outpatient (BNVA) | payer OTHER, SELFPAY | PROVIDERS: PCP Internal Medicine; Visit Provider Internal Medicine | DX: I10 Essential (primary) hypertension (principal); M15.0 Primary generalized (osteo)arthritis; R07.9 Chest pain, unspecified; F90.9 Attention-deficit hyperactivity disorder, unspecified type; Z87.39 Personal history of other diseases of the musculoskeletal system and connective tissue; Z79.899 Other long term (current) drug therapy | CPT/HCPCS: 99212 ==

== ENCOUNTER 2025-03-30 13:51 | Outpatient (AMB) | payer OTHER, SELFPAY ==
--- NOTE | 2025-03-30 14:01 | AM.OFFWIN_ITS ---
Intake Intake Visit Reasons: left swollen leg Intake Note: Patient c/o left swollen leg Patient Tobacco Use Status: Current everyday Tobacco user Screener And Blender Operator Required: No Allergies No Known Allergies Allergy (Verified 03/30/25 14:02) Do you need a note to return to daycare/school/sports/work: No PFSH Medical History Substance abuse Surgical History History of epidural steroid injection into cervical spine H/O shoulder surgery Family History Mother Alcoholism Depression Maternal Grandmother Alcoholism Maternal Grandfather Alcoholism Other FH: mental illness Substance abuse Social History Housing: Apartment (2 family house) Alcohol intake: former Comment: quit 2017 Patient Tobacco Use Status: Current everyday Tobacco user Tobacco use type: Cigarette Cigarette Packs Per Day: 0 Cigarettes Per Day: 20 Years Smoked: 36 e-Cigarette/Vaping Use: Never Used Second Hand Smoke Exposure: No Substance Use Type: Crack/Cocaine, Former Substance User, Other and Unknown service: No Current occupational status: employed and unemployed Cognitive needs: No Hearing needs: No Vision needs: Yes (reading glasses) Coding
--- NOTE | 2025-03-30 14:04 | A.OFFPC_ITS ---
Vital Signs 3 03/30/25 14:06 Height 6 ft 0.17 in Weight 344 lb BMI 46.4 BP 122/70 Blood Pressure Location Lt brachial Position Sitting Respiration 12 Pulse 84 Pulse Source Pulse Oximeter Temp 97.6 F Temp Source Oral Pulse Oximetry (%) 98 Oxygen Delivery Method Room Air Intake Visit Reasons: left swollen leg Intake Note: Patient c/o left leg red and swollen it started yesterday. Group Fitness Instructor Required: No Allergies No Known Allergies Allergy (Verified 03/30/25 14:12) Medication List - Last Reconciled 03/30/25 by Pratima Leon, SHIFT MECHANIC- aripiprazole 10 mg PO BEDTIME atorvastatin 40 mg PO DAILY baclofen 20 mg PO TID cholecalciferol (vitamin D3) 50 mcg PO DAILY dextroamphetamine-amphetamine 20 mg 20 mg PO BID 60 days furosemide 40 mg PO DAILY ibuprofen 800 mg PO 3XD PRN pregabalin 300 mg PO BID suzetrigine (Journavx) 50 mg PO BID venlafaxine ER 75 mg PO DAILY Wegovy (semaglutide (weight loss)) 0.25 mg (0.5 mL) subcut QWEEK 4 weeks NS Zepbound (tirzepatide (weight loss)) 2.5 mg (0.5 mL) subcut QWEEK NS Tobacco use date assessed: 03/30/25 Dental Screening Dental Screen Date: 03/30/25 Did you have a dental visit in the last 12 months?: Yes Did you have a dental problem in the last 6 months where you did not have access to dental care?: No Was dental information given to patient?: Patient has dentist HPI HPI Comments 2 History of Present Illness0 Details 54 year old male with a past medical his tory of chronic back pain-DDD, hypertension, depression, ADHD, opioid misuse on suboxone Here today w/ c/o redness and swelling of left leg noticed yesterday has chronic leg swelling; this is not new. Taking lasix Has an open area near his R ankle Tdap 2012; will update today Declined flu shot Current smoker Denies fever, chills; reports normal sensation in the L foot Exam LLE Neurovasc intact, +1-2 edema, warm to touch. See picture below Plan Tdap today Augmentin w/ food for 7 days Smoking cessation RTO 04/04 for recheck. Total time spent caring for the patient today was 30 minutes. This includes time spent before the visit reviewing the chart, time spent during the visit, and time spent after the visit on documentation, reviewing laboratory results, diagnostic imaging, medications, performing a medically necessary evaluation, counseling on diagnoses, care coordination, ordering appropriate tests, ordering appropriate medications, review of tests performed by other providers, reporting test results with the patient, communication with other healthcare providers. [facility] Medical History Substance abuse Surgical History History of epidural steroid injection into cervical spine H/O shoulder surgery Family History Mother Alcoholism Depression Maternal Grandmother Alcoholism Maternal Grandfather Alcoholism Other FH: mental illness Substance abuse Social History Housing: Apartment (2 family house) Alcohol intake: former Comment: quit 2017 Patient Tobacco Use Status: Current everyday Tobacco user Tobacco use type: Cigarette Cigarette Packs Per Day: 0 Cigarettes Per Day: 20 Years Smoked: 36 e-Cigarette/Vaping Use: Never Used Second Hand Smoke Exposure: No Substance Use Type: Crack/Cocaine, Former Substance User, Other and Unknown service: No Current occupational status: employed and unemployed Cognitive needs: No Hearing needs: No Vision needs: Yes (reading glasses) Questionnaire Thrive Questionnaire Date Thrive assessed: 07/27/24 I am a: Patient What is your living situation today?: I have a steady place to live Within the past 12 months, did the food you bought not last and you didn't have the money to get more?: Sometimes True Within the past 12 months, did you worry whether your food would run out before you got money to buy more?: Sometimes True Do you have trouble paying for medicines?: I choose not to answer this question Do you have trouble getting transportation to medical appointments?: I choose not to answer this question Do you have trouble paying your heating and electricity bill?: I choose not to answer this question Do you have trouble taking care of your child, family member or friend?: I choose not to answer this question Do you have trouble with day-to-day activities such as bathing, preparing meals, shopping, managing finances, etc.?: I choose not to answer this question Are you currently unemployed and looking for a job?: I choose not to answer this question Are you interested in more education?: I choose not to answer this question Please select the resources that you would like help with: None Currently or been in a relationship where the following occur: I choose not to answer THRIVE Score: 2 AUDIT C Alcohol Use Questionnaire (AUDIT-C) 2. How many drinks containing alcohol do you have on a typical day when you are drinking?: 1 or 2 Total Score: 0 OBED-7 AMB Questionnaire OBED-7 Date OBED - 7 assessed: 07/30/24 Source: Developed by Drs. Dannie Almaguer, Dari Bolanos, Simone Cochran and colleagues, with an educational sulaiman from [employer]. Physical exam (Primary Care) Vital Signs: Last Vital Signs Temp 97.6 F 03/30/25 14:06 Pulse 84 03/30/25 14:06 Resp 12 03/30/25 14:06 BP 122/70 03/30/25 14:06 Pulse Ox 98 03/30/25 14:06 Oxygen Delivery Method Room Air 03/30/25 14:06 BMI result Body Mass Index 46.4 BMI Assessment/Plan discussion: High BMI High, discussed plan: lifestyle Tobacco/Smoking Status: Tobacco use Status Tobacco use date assessed 03/30/25 03/30/25 14:07 Patient Tobacco Use Status Current everyday Tobacco 03/30/25 14:04 Tobacco use type Cigarette 03/30/25 14:04 e-Cigarette/Vaping Use Never Used 03/30/25 14:04 Are you ready to quit: No Tobacco cessation counseling provided: Yes Items discussed: Nicotine replacement, QuitWorks and Other Relapse Prevention: discussed the importance of a supportive environment, discussed extending NRT, discussed negative mood or depression after quitting, weight gain after smoking is common and discussed dietary, exercise and/or lifestyle changes Number of minutes spent counselin CPT code: 11925 - 4-10 Minutes Thrive Assessment: Date of Thrive Assessment Date Thrive assessed 07/27/24 03/30/25 14:04 Currently or been in a relationship where the following occur: I choose not to answer Immunizations Boostrix Tdap 2.5 Lf unit-8 mcg-5 Lf/0.5 mL intramuscular syringe Performing Provider: MICHAEL Weber Performing Location: [facility] Administered by: Sophie Bergman MA on 03/30/25 14:27 2 Dose Route Admin Location Dispensed Lot Number Expiration Date NDC Machine Feed Operator 0.5 mL IM Right Deltoid 0.5 mL [id number] 05/11/27 73222-490-12 [employer] 2 Total Dispensed Waste 0.5 mL 0 % 2 VIS Given Date VIS Provided VIS Publication Date 03/30/25 Single Vaccine 21 Eligibility Eligibility Date Funding Source Not [facility] Eligible 03/30/25 Private Coding Level of Care Code Est Pt Level 4 (80327) Complex EM visit Add On G2211 Diagnoses Cellulitis of left lower extremity L03.116 Need for Tdap vaccination Z23 Influenza vaccination declined Z28.21 Tobacco dependence F17.200 Obesity, morbid, BMI 40.0-49.9 E66.01 Additional Codes Vital Signs *Quality* - CPT code: 53235 - 4-10 Minutes ([id number]) Assessment & Plan Assessment & Plan (1) Cellulitis of left lower extremity: Code(s): L03.116 - Cellulitis of left lower limb Category: Medical (2) Need for Tdap vaccination: Code(s): Z23 - Encounter for immunization Category: Medical (3) Influenza vaccination declined: Onset Date: ~03/30/25 Code(s): Z28.21 - Immunization not carried out because of patient refusal Category: Medical (4) Tobacco dependence: Comment: Smoking Cessation How to Quit There are a lot of ways to quit smoking and many resources to help you. Family members, friends, and co-workers may be supportive or encouraging, but to be successful the desire and commitment to quit must be your own. Most people who have been able to successfully quit smoking made at least one unsuccessful attempt in the past. Try not to view past attempts to quit as failures, but rather as learning experiences. Stopping smoking or using smokeless tobacco is difficult, but anyone can do it. Know the symptoms to expect when you stop. Common symptoms include: ? An intense craving for nicotine ? Anxiety, tension, restlessness, frustration, or impatience ? Difficulty concentrating ? Drowsiness or trouble sleeping, as well as bad dreams and nightmares ? Drowsiness and trouble sleeping ? Headaches ? Increased appetite and weight gain ? Irritability or depression How severe your symptoms are depends on how long you smoked and how many cigarettes you smoked each day. Feel ready to quit? ? First and foremost, set a quit date and quit completely on that day. Before your quit date, you may begin reducing your cigarette use. But remember, there is no safe level of cigarette smoking. ? List the reasons why you want to quit. Include both short- and long-term benefits. ? Identify the times you are most likely to smoke. For example, do you tend to smoke when feeling stressed or down? When out at night with friends? While drinking coffee or alcohol? When bored? While driving? Right after a meal or sex? During a work break? While watching TV or playing cards? When you are with other smokers? ? Let all of your friends, family, and co-workers know of your plan to stop smoking and your quit date. Just being aware that they know what you're going through can be helpful, especially when you are grumpy. ? Get rid of all your cigarettes just before the quit date, and clean out anything that smells like smoke, such as clothes and furniture. Make a plan about what you will do instead of smoking at those times when you are most likely to smoke. ? Be as specific as possible. For example, drink tea instead of coffee -- tea may not trigger the desire for a cigarette. Or, take a walk when you feel stressed. ? Remove ashtrays and cigarettes from the car. Place pretzels or hard candies there instead. Pretend-smoke with a straw. ? Find activities that focus your hands and mind but are not taxing or fattening. Computer games, solitaire, knitting, sewing, and crossword puzzles may help. ? If you normally smoke after eating, find other ways to end a meal. Play a tape or CD, eat a piece of fruit, get up and make a phone call, or take a walk (a good distraction that also felix calories). Make other changes in your lifestyle. ? Change your daily schedule and habits. Eat at different times or eat several small meals instead of three large ones. Sit in a different chair or even a different room. ? Satisfy your oral habits by eating celery or other low-calorie snack, chewing sugarless gum, or sucking on a cinnamon stick. ? Go to public places and restaurants where smoking is prohibited or restricted. ? Eat regular meals and don't eat too much candy or sweet things. ? Get more exercise. Take walks or ride a bike. Exercise helps relieve the urge to smoke. Set short-term quitting goals and reward yourself when you meet them. ? Every day, put the money you normally spend on cigarettes in a jar. Then buy something pleasurable after a period of time. ? Try not to think about all the days ahead you will need to avoid smoking. Take it one day at a time. ? Even one puff or one cigarette will make your desire for more cigarettes even stronger. However, it is normal to make mistakes. So even if you have one cigarette, you don't need to take the next one. Other tips to help you quit smoking and stick to it: ? Enroll in a smoking cessation program (hospitals, health departments, community centers, and work sites often offer programs). Learn about self-hypnosis or other techniques. ? Ask your health care provider about prescription medications that are safe and appropriate for you. ? Find out about nicotine patches, gum, and sprays. The [place] [employer]'s web site -- www.cancer.org -- is an excellent resource for smokers who are trying to quit, and the [place] Smokeout can help some smokers kick the habit. Above all, don't get discouraged if you aren't able to quit smoking the first time. Nicotine addiction is a hard habit to break. Try something different next time. Develop new strategies, and try again. Many people take several attempts to finally kick the habit. Code(s): F17.200 - Nicotine dependence, unspecified, uncomplicated Category: Medical (5) Obesity, morbid, BMI 40.0-49.9: Code(s): E66.01 - Morbid (severe) obesity due to excess calories Category: Medical Plan . Orders: Orders 2 TDaP Immunization Today Z23 - Encounter for immunization Medications: New 2 amoxicillin-pot clavulanate 875-125 mg 1 tab PO BID 14 tabs 0RF 7 days
[2025-03-30 14:06] VITALS: BP 122/70; PULSE 84; RESP 12; TEMP 36.4; O2SAT 98; BMI 46.4
== END 2025-03-30 14:30 | disposition home or self-care (01) ==
LOC: HO.HMCFM 13:52
PROVIDERS: PCP Internal Medicine; Visit Provider Nurse Practitioner Family
DX: L03.116 Cellulitis of left lower limb (principal); E66.01 Morbid (severe) obesity due to excess calories; Z68.42 Body mass index [BMI] 45.0-49.9, adult; Z23 Encounter for immunization; Z28.21 Immunization not carried out because of patient refusal; F17.200 Nicotine dependence, unspecified, uncomplicated

== ENCOUNTER → 2025-03-30 13:51 | Outpatient (BNVA) | payer OTHER, SELFPAY | PROVIDERS: PCP Internal Medicine; Visit Provider Nurse Practitioner Family | DX: L03.116 Cellulitis of left lower limb (principal); I10 Essential (primary) hypertension; F90.9 Attention-deficit hyperactivity disorder, unspecified type; F17.210 Nicotine dependence, cigarettes, uncomplicated; E66.01 Morbid (severe) obesity due to excess calories; Z23 Encounter for immunization; Z68.42 Body mass index [BMI] 45.0-49.9, adult | CPT/HCPCS: 90471; 90715; 99212 ==

== ENCOUNTER → 2025-05-27 08:07 | Outpatient (REF) | payer OTHER, SELFPAY ==
--- NOTE | ~2025-05-27 | NM_ITS ---
EXERCISE MYOCARDIAL PERFUSION STUDY INDICATION: Chest pain, abnormal EKG TECHNIQUE: The patient was brought in for an exercise perfusion study on 05/27/2025. Patient performed exercise as per Tahir protocol and was injected 45 mCi of sestamibi once target heart rate was achieved. Images were obtained using the SPECT gamma camera interlaced with the gating device. Images were obtained in supine position. Resting perfusion study was performed on 06/09/2025. Patient was administered 45 mCi of sestamibi intravenously at rest. Images were then obtained in supine position. Total DLP 157 mGy-cm. Images were processed with the software and compared side to side in short axis, horizontal long axis and vertical long axis views. FINDINGS: Raw aquisition reviewed. The stress perfusion study showed no significant perfusion abnormality. The gated study shows mildly decreased LV systolic function with calculated LVEF of 50%. LV cavity is normal in size. The gated study shows normal wall thickening and contraction of segments. Resting study shows no significant perfusion abnormality but image quality is suboptimal due to patient movement. Gating at rest reveals normal wall motion with ejection fraction at 61%. The findings are consistent with no clear reversible or fixed perfusion abnormality. NM/NM cardiolite stress test IMPRESSION: 1. Myocardial perfusion imaging study shows probably normal myocardial perfusion. 2. Gated LVEF is 50% during stress and 61% during rest. Correlate with echocardiogram. 3. Transient ischemic dilatation ratio 1.2. EKG component of the test reported separately. Electronically signed by: Waqar Hankins MD 06/09/2025 05:36 PM [facility]
--- NOTE | 2025-05-27 08:10 | CA_ITS ---
Acquisition Time: 2025-05-27 08:41:09 Total Exercise Time: 00:05:30 Test Indications: r94.31 Medications: see h&p Protocol: BARBARA Max HR: 153 BPM 92% of Pred: 166 BPM Max BP: 150/84 mmHG Max Work Load: 5.3 METS Exercise stress test with exercise 5 mins 30 secs of Barbara Protocol held at Stage 1 with increased incline to 13%, achieving 85% MPHR, with reports of SOB, no chest pain, with isolated PVCs, with normotensive response to exercise. Without any EKG changes meeting criteria for ischemia. In recovery, breathing returned to baseline. Nuclear images pending. Test reviewed with Dr. Hankins. Referred By: Meena Chen Electronically Signed By: Lito Coreas
--- OUTSIDE RECORDS SUMMARY | 2025-05-27 08:11 | XMS_ITS | Clinical Summary ---
Author Organization [facility] Address [address] [place] [address] Phone Care Team Providers Care Retanned Leather Roller Name Role Phone Meena Chen MD Primary Care Provider [phone] Allergies No known active allergies Medications buprenorphine-n aloxone (SUBOXONE) 8-2 mg per SL film Place 2 films under the tongue 2 (two) times a day. Active pregabalin (LYRICA) 300 mg capsule Take 1 capsule (300 mg total) by mouth 2 (two) times a day. Active amphetamine-dex troamphetamine (ADDERALL) 20 mg tablet Take 1 tablet (20 mg total) by mouth 2 (two) times a day. Active ibuprofen (ADVIL,MOTRIN) 800 mg tablet Take 1 tablet (800 mg total) by mouth every 8 (eight) hours if needed. Active atorvastatin (LIPITOR) 40 mg tablet Take 1 tablet (40 mg total) by mouth 1 (one) time each day. 06/07/2021 Active venlafaxine XR (EFFEXOR-XR) 150 mg 24 hr capsule Take 1 capsule (150 mg total) by mouth 1 (one) time each day. 09/28/2024 Active propranoloL (INDERAL) 20 mg tablet Take 1 tablet (20 mg total) by mouth 1 (one) time each day in the evening. Active cholecalciferol (VITAMIN D-3) 25 mcg (1,000 unit) capsule Take 1 capsule (1,000 Units total) by mouth 1 (one) time each day. 06/29/2024 Active chlorthalidone (HYGROTON) 25 mg tablet Take 1 tablet (25 mg total) by mouth 1 (one) time each day. for 90 days Active ARIPiprazole (ABILIFY) 15 mg tablet Take 1 tablet (15 mg total) by mouth 1 (one) time each day. 10/19/2024 Active Active Problems No known active problems Encounters Date Type Department Care Team Description 04/19/2025 11:22 AM EDT Anesthesia Event [facility] [address] [place] [address] Seb Bansal MD 04/19/2025 11:13 AM EDT - 04/19/2025 11:59 PM EDT Hospital Encounter [facility] X[facility] [address] [place] [address] Pain Discharge Disposition: Home or Self Care 04/19/2025 9:54 AM EDT - 04/19/2025 11:59 PM EDT Hospital Encounter [facility] [address] [place] [address] Romulo Santos DO Saliga, Jesse L, MD Swanson, Mona, CRNA Radiculopathy, cervical region; Radiculopathy, lumbar region Discharge Disposition: Home or Self Care 03/15/2025 12:31 PM EDT Anesthesia Event [facility] [address] [place] [address] Curtis Pots MD 03/15/2025 12:23 PM EDT - 03/15/2025 11:59 PM EDT Hospital Encounter [facility] [address] [place] [address] Romulo Santos DO Slanda, Summer, CRNA Dasilva, John E, MD Radiculopathy, cervical region; Radiculopathy, lumbar region Discharge Disposition: Home or Self Care from Last 3 Months Surgical History Surgery Date Site/Laterality Comments SHOULDER SURGERY 2002 Right PROCEDURE: HISTORICAL SHOULDER SURGERY Medical History Medical History Date Comments Cervicalgia 03/24/2017 DX:Cervicalgia High risk medication use 12/12/2016 DX:High risk medication use Hyperlipidemia with target L DL less than 130 12/23/2013 DX:Hyperlipidemia with targe t LDL less than 130; COMMENT: DEVON update Lumbosacral spondylosis with radiculopathy 05/30/2015 DX:Lumbosacral spondylosis w ith radiculopathy; COMMENT: Sees PSSP, MRI: DDD, sppondylisthesis, foraminal narrowing , L3-4 nerve root crowding Morbid obesity with BMI of 4 5.0-49.9, adult ([facility] V24, [facility] V28) 03/24/2017 DX:Morbid obesity wit h BMI of 45.0-49.9, adult ([facility]) Sacroiliitis ([facility] V24) 03/24/2017 DX:Sa croiliitis ([facility]) Thoracic spondylosis without myelopathy DX:Thoracic spondylosis without myelopathy; COMMENT: PSSP Anxiety Depression Family History Medical History Relation Name Comments Other: fire Father Stroke Maternal Grandmother Heart attack Mother Relation Name Status Comments Father Maternal Grandmother Mother Social History Tobacco Use Types Packs/Day Years Used Date Smoking Tobacco: Every Day Cigarettes Smokeless Tobacco: Never Tobacco Cessation:Ready to Q uit: Not Asked; Counseling Given: Not Answered Alcohol Use Standard Drinks/Week Comments No 0 (1 standard drink = 0.6 oz pur e alcohol) Interpersonal Safety Answer Date Record ed Physical Abuse Unrecognized value 04/19/2025 Verbal Abuse Unrecognized value 04/19/2025 Sex and Gender Information Value Date Recorded Sex Assigned at Not on file Legal Sex Male 7:48 PM EST Gender Identity Not on file Sexual Orientation Not on file Obstetrics History Last Filed Vital Signs Vital Sign Reading Time Taken Comments Blood Pressure 129/74 04/19/2025 12:16 PM EDT Pulse 68 04/19/2025 12:16 PM EDT Temperature 36.1 C (97 F) 04/19/2025 11:48 AM EDT Respiratory Rate 12 04/19/2025 12:16 PM EDT Oxygen Saturation 94% 04/19/2025 12:16 PM EDT Inhaled Oxygen Concentration - - Weight 147 kg (325 lb) 04/19/2025 10:09 AM EDT Height 180.3 cm (5' 11 ) 01/11/2025 9:05 AM EDT Body Mass Index 45.33 01/11/2025 9:05 AM EDT Plan of Treatment Health Maintenance Due Date Last Done Comments Colorectal Cancer Screening: Colonoscopy 1970 Hepatitis B Vaccines (1 of 3 - 19+ 3-dose series) 1989 Pneumococcal Vaccine: 50+ Years (1 of 2 - PCV) 1989 RSV Immunization Adult Patients (1 - Risk 50-74 years 1-dose series) 2020 Zoster Vaccines (1 of 2) 2020 Cholesterol Screening (Lipid Panel) 06/08/2022 HIV Screening 06/08/2022 Hepatitis C Screening 06/08/2022 Medicare Annual Wellness Visit 06/08/2022 Social Influencers of Health Screening 06/08/2022 Hypertension/CHF/CAD Annual BMP Blood Test 06/22/2022 Depression Screening 07/07/2024 COVID-19 Vaccine (4 - 2024-2 6 season) 2025 06/28/2021, 11/26/2020, 11/05/2020 Influenza Vaccine (#1) 2025 05/10/2020 DTaP,Tdap,and Td Vaccines (3 - Td or Tdap) 03/30/2035 03/30/2025, 12/04/2012 HIB Vaccines Aged Out No longer eligi [...] age to complete this topic Meningococcal B Vaccine Aged Out No l onger eligible based on patient's age to complete this topic RSV Immunization Patients Under 20 months Aged Out No longer eligible b ased on patient's age to complete this topic Varicella Vaccines Aged Out No longer eligible based on patient's age to complete this topic Insurance [facility] MEDICARE Member Subscriber Plan / Payer (Ef fective 2022-Present) Name:ADRIANNA WILLIAMSON Relation to Subscriber:Self Name:Adrianna Williamson W Payer ID:[id number] Group ID:[id number] Type:Not on file Address: [place] [address] [address] [id number] Care Teams Retanned Leather Roller Relationship Specialty Start Date End Date Meena Chen MD [address] [place] [phone] PCP - General Internal Medicine 04/28/15
== END ==
LOC: HO.CARD 08:07
PROVIDERS: PCP Internal Medicine; Visit Provider Internal Medicine
DX: R94.31 Abnormal electrocardiogram [ECG] [EKG] (principal)
CPT/HCPCS: 78452; 93017; A9500; J0280; J2785

== ENCOUNTER → 2025-05-27 08:10 | Outpatient (BNV) | payer OTHER, SELFPAY | PROVIDERS: PCP Internal Medicine | DX: I49.3 Ventricular premature depolarization (principal); R06.02 Shortness of breath | CPT/HCPCS: 78452; 93016; 93018 ==

== ENCOUNTER 2025-06-21 13:31 | Outpatient (AMB) | payer OTHER, SELFPAY ==
[2025-06-21 13:33] VITALS: BMI 44.1
--- NOTE | 2025-06-21 13:33 | A.PHYSOV_ITS ---
Vital Signs 06/21/25 13:33 Height 6 ft Weight 325 lb BMI 44.1 Intake Visit Reasons: Follow up after injection 04/19/25 Intake Note: Patient is a 55 year old male in office today for a follow up after C7-T1 interlaminar epidural injection 04/19/25. 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 His lumbar spine MRI revealed a right-sided disc osteophyte complex at the L1-L2 level, consistent with his symptomatic presentation of pain radiating to the right groin. He received a right L1 transforaminal injection on January 11, 2025, which improved pain in the thoracolumbar junction and right groin area. An updated cervical spine MRI on October 19, 2024, did not show any new pathology. The patient has a history of receiving cervical and lumbar epidural injections, both of which have provided better pain control. He is now status post a C7-T1 epidural injection and an L5-S1 interlaminar epidural steroid injection, both performed on April 19, 2025. He reports current soreness in his neck, mid- back, and lower back, noting the neck injection helps the least. His lower back is feeling considerably better after the injection. His sleep is disturbed by the pain, and he only sleeps about four hours at a time, finding that sleeping on his side is the only way to get some sleep. He notes injections provide temporary relief and inflammation worsens without them. In addition to injections, he uses ibuprofen and a medication for nerve damage. Pain is exacerbated by prolonged standing, walking, and sitting. The patient has a lifelong history of being overweight but is not diabetic and does not have hypertension. Attempts to get weight loss medications like Ozempic have been denied because he is not diabetic. He engages in moderate exercise. He reports a past arm fracture from a hockey stick injury. Pain Description - Location: Patient reports pain in the neck, mid-back, and lower back. - Quality: The patient describes the pain as soreness and notes that inflammation gets worse without injections. - Exacerbating factors: Pain is worsened by prolonged standing or walking, as well as prolonged sitting. - Alleviating factors: Epidural steroid injections provide temporary relief. - Associated symptoms: Pain interferes with sleep, as he can only sleep for about four hours at a time and is awakened when he rolls over. Results - Lumbar sacral spine MRI: Showed a right-sided disc osteophyte complex at the L1-L2 level. - Cervical spine MRI (October 19, 2024): Did not demonstrate any new pathology. [facility], LAT[facility] Medical History Substance abuse Surgical History History of epidural steroid injection into cervical spine H/O shoulder surgery Family History Mother Alcoholism Depression Maternal Grandmother Alcoholism Maternal Grandfather Alcoholism Other FH: mental illness Substance abuse Social History Housing: Apartment (2 family house) Alcohol intake: former Comment: quit 2017 Patient Tobacco Use Status: Current everyday Tobacco user Tobacco use type: Cigarette Cigarette Packs Per Day: 0 Cigarettes Per Day: 20 Years Smoked: 36 e-Cigarette/Vaping Use: Never Used Second Hand Smoke Exposure: No Substance Use Type: Crack/Cocaine, Former Substance User, Other and Unknown service: No Current occupational status: employed and unemployed Cognitive needs: No Hearing needs: No Vision needs: Yes (reading glasses) Review of Systems Narrative Review of Systems - Musculoskeletal: Reports soreness in the neck, mid-back, and lower back. - Neurological: Reports nerve damage for which he takes medication. - Constitutional: Reports a lifelong weight problem. - Psychiatric: Reports mental health problems secondary to chronic pain. - Endocrine: Denies diabetes or high blood sugar. - Cardiovascular: Denies high blood pressure. Physical Exam Exam Exam: Physical Exam Patient appears to be in no acute distress. Gait was waddling without antalgia. Dural tension signs were negative. Lumbar extension was restricted. Neurological examination of upper and lower extremities was nonfocal. He demonstrated no upper motor neuron signs. Tenderness with palpation over lumbar paraspinal muscles. Cervical range of motion was restricted and side bending and extension. Spurling maneuver was negative. Lhermitte's sign was negative. Vital Signs: BMI result Body Mass Index 44.1 Assessment & Plan Assessment & Plan (1) Lumbar radiculitis: Code(s): M54.16 - Radiculopathy, lumbar region Category: Medical (2) Cervical radiculitis: Code(s): M54.12 - Radiculopathy, cervical region Category: Medical Plan Pain Management - Analgesia: The patient reports being sore and uses ibuprofen and an unspecified medication for nerve damage. - Activities of Daily Living: Sleep is significantly disturbed by pain, limiting him to about four hours of sleep at a time. Plan Patient was informed and verbally consented to the use of an ambient scribe for clinic note documentation during this visit. 1. Chronic Lower Back Pain The patient reports ongoing lower and mid-back pain despite recent injections. He finds that the injections provide temporary benefit and that his inflammation worsens without them. The plan is to continue with injections for the mid and lower back on an as-needed basis, with the understanding that up to four procedures per year is safe. He will continue conservative management with lifestyle modifications such as alternating sitting and standing, moderate exercise, and taking ibuprofen as needed. A follow-up appointment will be scheduled for continuity of care. 2. Chronic Neck Pain The patient reports that the recent C7-T1 epidural injection was the least helpful of the procedures he has undergone. Given the limited benefit, the plan is to focus future injections on the mid and lower back and likely forego further cervical injections. 3. Overweight The patient has a lifelong history of being overweight and has been unsuccessful in obtaining prescriptions for weight loss medications like Ozempic because he is not diabetic. He will continue with his current regimen of moderate exercise. No new interventions were planned at this visit. Discussion Notes I discussed the patient's response to his recent cervical and lumbar epidural steroid injections. He reported that the injections help temporarily but do not last long, with the neck injection providing the least amount of relief. We agreed to proceed with repeat L5-S1 epidural injection in the middle of July as he feels the inflammation worsens without them. I advised him that receiving up to four injections per year is considered a safe frequency in terms of bone health. We also discussed his lifelong struggle with his weight and the denial of weight loss medications because he is not diabetic. We decided to schedule a follow-up appointment to maintain consistent management of his chronic pain. Risks and benefits of the procedure were discussed with the patient. Potential alternative measures were also discussed. Patient understands that the procedure is completely elective. Potential side effects associated with injectable medications were discussed. All questions were answered to the patient's satisfaction. Patient Instructions - We will continue with steroid injections for your mid and lower back when you feel they are necessary to control your pain. - It is safe to receive up to four injections per year. - Since the neck injections are not very helpful, we can skip those in the future. - Continue with moderate exercise and be sure to take breaks from prolonged standing or sitting to manage your pain. - Please schedule a follow-up appointment so we can continue to work together on managing your pain. Orders: Referrals Physiatry Procedure Notification M54.16 - Radiculopathy, lumbar region Coding Level of Care Code Est Pt Level 4 (47539) Add On Problem Visit Only Diagnoses Lumbar radiculitis M54.16 Cervical radiculitis M54.12
--- OUTSIDE RECORDS SUMMARY | 2025-06-21 17:37 | XMS_ITS | Patient Health Record ---
Author Organization [facility] Address [address] [place] [address] Care Team Providers Care Cleaning Attendant Name Role Phone DO MINAYA md Primary Care Provider DO Lyons Unavailable [phone] Allergies No Known Allergies Reason For Referral No Information Medications Medication SIG (Take, Route, Frequency, Duration) Notes Start Date End Date Status KlonoPIN 1 MG Tablet 1 tab(s) orally 3 t imes a day; Duration: 30 day(s) Active Suboxone 8-2 MG Film 2 film(s) sublingua lly once a day; Duration: 30 day(s) Active Furosemide 20 MG Tablet 1 tab(s) orally once a day prn leg swelling; Duration: 90 day(s) Active Ibuprofen 800 MG Tablet 1 tab(s) orally q 8 hours prn pain; Duration: 30 day(s) Active Citalopram Hydrobromide 20 MG Tablet 1 tab(s) orally once a day; Duration: 30 day(s) Active Adderall 30 MG Tablet 1 tab(s) orally 2 times a day; Duration: 30 day(s) Active ARIPiprazole 10 MG Tablet 1/2 tab orally once a day Active Chlorthalidone 25 MG Tablet 1 tab(s) ora lly once a day; Duration: 90 day(s) Active Atorvastatin Calcium 40 MG Tablet 1 tab(s) orally once a day; Duration: 30 day(s) Active Pregabalin 300 MG Capsule 1 cap(s) orall y 2 times a day; Duration: 30 days 05/21/2021 Active Social History Tobacco Use: Social History Observation Description Date Details (start date - stop date) Current Smoker NA - NA Social History Tobacco Use: Social Info Question Answer Notes Smoking Are you a: current smoker How often do you smoke Cigarettes? every day How many cigarettes a day do you smoke? 11- Additional Details Category Social Info Options Details General Occupation: Unemployed asbestos exposure: no alcohol use: yes 2-3 drinks a wee k drug use: yes marijuana Hobbies/Exercise habits: Exercis e bike Coffee/Tea/Soda: yes decaf coffee 2 daily, 3 diet cokes a day Marital Status single experience no smokers in household yes Problems Problem Type SNOMED Code ICD Code Onset Dates Problem Status W/U Status Risk Notes Problem Low back pain (183572603) Low back pain (M54.5) Active confirmed Problem Psoriasis (6719097) Psoriasis (L40.9) Active co nfirmed Problem Chronic pain (83687629) Other chronic pain (G89.29) Active confirmed Problem Morbid obesity (244449334) Morbid obesity (E66.01) Active confirmed Problem Edema (442929451) Lower extremit y edema (R60.0) Active confirmed Problem Primary hypertension (93894897) Primary hypertension (I10) Active confirmed Problem Pure hypercholesterolemia (486564675) Pure hypercholesterolemia (E78.00) Active confirmed Problem Attention deficit hyperactivity disorder (175982350) Attention deficit disorder, unspecified hyperactivity presence (F98.8) Active confirmed Problem Mixed anxiety and depressive disorder (153127508) Depression with anxiety (F41.8) Active confirmed Plan Of Treatment Future Test Test Name Order Date Echocardiogram 02/15/2021 COMP. METABOLIC 02/20/2021 Insurance Providers Payer Name Payer Address Payer Phone Subscriber Number Group Number Insured Name Patient Relationship to Insured Coverage Start Date Coverage End Date MEDICARE Loop Survey [facility] [employer] [address] [place] [address] [id number] ADRIANNA WILLIAMSON Self - patient is the insured 0 [facility] [employer] [address] [place] [address] [id number] ADRIANNA WILLIAMSON Self - patient is the insured Medical (General) History Medical History History ICD Code Arthritis Hyperlipidemia Depression HTN Psoriasis Surgical History Surgery Date(Month/Year) Shoulder Surgery 09/2002
== END 2025-06-21 13:57 | disposition home or self-care (01) ==
LOC: HO.HPHYS 13:31
PROVIDERS: PCP Internal Medicine; Visit Provider Physical Medicine & Rehabilitation
DX: M54.16 Radiculopathy, lumbar region (principal); M54.12 Radiculopathy, cervical region
CPT/HCPCS: 99214; G2211

== ENCOUNTER → 2025-06-21 13:31 | Outpatient (BNVA) | payer OTHER, SELFPAY | PROVIDERS: PCP Internal Medicine; Visit Provider Physical Medicine & Rehabilitation | DX: M54.16 Radiculopathy, lumbar region (principal); M54.12 Radiculopathy, cervical region; R20.0 Anesthesia of skin; M54.50 Low back pain, unspecified; G89.29 Other chronic pain; E66.3 Overweight; Z68.41 Body mass index [BMI] 40.0-44.9, adult | CPT/HCPCS: 99212 ==